=== PATIENT | female | born 1975 | race Caucasian/White ===

== ENCOUNTER 2016-09-30 12:26 | Day surgery (SDC) | payer OTHER ==
[2016-09-30] VITALS (16 sets, daily range): BP systolic 84–115; BP diastolic 44–69; PULSE 44–82; RESP 10–21; Ht 167.6 cm; Wt 54.0 kg
[~2016-09-30] VITALS: Ht 167.6 cm; Wt 54.0 kg
[2016-09-30] MEDS ORDERED: THYR30TA PO (13:12)
[2016-09-30] MEDS ORDERED: CEFAZOLIN 2 GM/50 ML (PMX) 50 ML IVPB ONE (14:00)
[2016-09-30] MEDS ORDERED: SOD CHLORIDE 0.9% 1,000 ML IV ONE (14:00)
[2016-09-30] MEDS ORDERED: BUPIVACAINE 0.25% (MPF) 10 ML 10 ML VIAL ONE (18:11)
[2016-09-30] MEDS ORDERED: POLYMYXIN/BACITRACIN 1L IRRIG ONE (18:12)
[2016-09-30] MEDS ORDERED: MIDAZOLAM 1 MG/ML 2 ML INJ ONE (18:27)
[2016-09-30] MEDS ORDERED: FENTAnyl 50 MCG/ML VIAL ONE (18:27)
[2016-09-30] MEDS ORDERED: FAMOTIDINE 20 MG INJ ONE (18:40)
[2016-09-30] MEDS ORDERED: DEXAMETHASONE 4 MG/ML 1 ML INJ ONE (18:40)
[2016-09-30] MEDS ORDERED: ONDANSETRON 4 MG INJ ONE (18:40)
[2016-09-30] MEDS ORDERED: CEFAZOLIN 1 GM INJ ONE (18:53)
[2016-09-30] MEDS ORDERED: NEOSTIGMINE 3 MG/3 ML SYRINGE ONE (18:58)
[2016-09-30] MEDS ORDERED: GLYCOPYRROLATE 0.4 MG INJ ONE (18:58)
[2016-09-30] MEDS ORDERED: OXYCODONE/ACETAMINOPHEN (5/325) TAB PO PRN (19:00)
[2016-09-30] MEDS ORDERED: DIPHENHYDRAMINE 50 MG INJ IV PRN (19:00)
[2016-09-30] MEDS ORDERED: HYDROmorphONE (0.2 MG/ML) 10ML SYG IV PRN (19:00)
[2016-09-30] MEDS ORDERED: MEPERIDINE 25 MG INJ IV PRN (19:00)
[2016-09-30] MEDS ORDERED: FENTAnyl 50 MCG/ML VIAL IV PRN (19:00)
[2016-09-30] MEDS ORDERED: ONDANSETRON 4 MG INJ IV PRN (19:00)
[2016-09-30] MEDS ORDERED: PROCHLORPERAZINE 10 MG INJ IV PRN (19:00)
[2016-09-30] MEDS ORDERED: KETOROLAC 30 MG INJ ONE (19:01)
--- NOTE | 2016-09-30 19:05 | OPR ---
Date/Time of Note Date/Time of Note DATE: 09/30/16 TIME: 19:04 Operative Report Procedure Date: Sep 30, 2016 Preoperative Diagnosis incarcerated ventral hernia Postoperative Diagnosis same Operation Performed lap incarcerated ventral hernia repair mesh implantation Surgeon: Quincy PETERSEN G. SEONG Sep 30, 2016 19:05
--- NOTE | 2016-09-30 19:27 | OPR ---
DATE OF OPERATION: 09/30/2016 INDICATION: This is a 40-year-old female who has symptomatic incarcerated ventral hernia. She requests surgical repair. Risks, alternatives, benefits, and personnel were discussed with the patient. The patient expresses understanding and consents to the operation. PREOPERATIVE DIAGNOSIS: Incarcerated ventral hernia. POSTOPERATIVE DIAGNOSIS: Incarcerated ventral hernia. Surgeon: Dr. Canales Transportation Lead Surgeon: Gagan Fall OPERATION PERFORMED: 1. Laparoscopic incarcerated ventral hernia repair. CPT code 65883. 2. Implantation of mesh. CPT code 01457. SPECIMENS: None. COMPLICATIONS: None. ANESTHESIA: General. PROCEDURE: The patient was taken to the OR and prepped and draped in usual sterile fashion. Surgical timeout was performed. IV antibiotics were given. Left upper quadrant 5 mm transverse incision was made with a 15 blade. Using a 5 mm optical trocar, optical entry was performed. Pneumoperitoneum was established. Left flank 12 mm optical trocar and left lower quadrant 5 mm optical trocars were placed under direct visualization. Upon initial inspection , there were incarcerated contents into the ventral hernia. This was extracted with laparoscopic Harmonic and removed through the 12 mm port. The hernia defect was identified and closed using #1-0 Prolene with EndoClose and laparoscopic techniques. Underlay mesh 10 x [address] was secured in place with a SecureStrap. There was good hemostasis. There was approximately 4 to 5 cm of coverage in all directions. Ports were removed under direct visualization. Skin was closed using skin gema. Local anesthesia was injected. Dry dressings were applied. Dictated By: OSORIO STEIN/WOLF Conf#: [id number] DID#: [id number]
[2016-09-30] MEDS ORDERED: HYDROCODONE/APAP (5/325) TAB PO ONE (19:30)
== END 2016-09-30 21:05 | disposition home or self-care (01) ==
LOC: SDS 12:26
PROVIDERS: ATTEND Surgery
DX: K43.6 Other and unspecified ventral hernia with obstruction, without gangrene (principal); E03.9 Hypothyroidism, unspecified
CPT/HCPCS: 49653; C1781; J0690; J1100; J1170; J1200; J1885; J2175; J2250; J2405; J2710; J3010; Z7512; Z7610